=== PATIENT | female | born 1955 | race Caucasian/White ===

== ENCOUNTER 2016-05-18 07:14 | Outpatient (CLI) ==
[2016-05-18 08:15] LABS: ALBUMIN/GLOBULIN RATIO 1.38; ANION GAP 13.3; BILIRUBIN,TOTAL 1.16 mg/dL (0.00-1.20); BUN/CREATININE RATIO 15.29; CALCIUM 9.5 mg/dL (8.2-10.2); CREATININE 0.85 mg/dL (0.60-1.30); POTASSIUM 4.3 mmol/L (3.5-5.10); TOTAL PROTEIN 6.9 g/dL (6.4-8.2)
[2016-05-18 12:04] LABS: CHOL/HDL RATIO 4.2 (4.5-5.5)
== END 2016-05-18 07:15 | disposition home or self-care (01) ==
LOC: LAB 07:14
PROVIDERS: ATTEND Family Medicine
DX: I10 Essential (primary) hypertension (principal); F43.0 Acute stress reaction; F41.9 Anxiety disorder, unspecified; E55.9 Vitamin D deficiency, unspecified; E78.5 Hyperlipidemia, unspecified
CPT/HCPCS: 36415; 80053; 80061; 82306

== ENCOUNTER 2016-06-07 08:15 | Outpatient (CLI) ==
--- NOTE | 2016-06-07 09:22 | US ---
EXAM: Right upper quadrant abdominal ultrasound. History: Elevated liver enzymes. Technique: Multiple sonographic images through the abdomen were obtained. Color duplex Doppler was used to interrogate vascular flow. Findings: The pancreas was not seen due to bowel gas shadowing. No abdominal ascites. No shadowing gallstones. Gallbladder wall is not thickened. Common bile brittny t measures 0.3 cm in caliber. The liver is echogenic compared to the adjacent right renal cortex. The liver echotexture is coarse leonie. There is antegrade flow within the main portal vein. No focal liver lesions identified sonogr aphically. Limited visualization of the right kidney demonstrates no evidence for hydronephrosis. Impression: Fatty liver with coarsened echotexture.
== END 2016-06-07 08:16 | disposition home or self-care (01) ==
LOC: RAD 08:15
PROVIDERS: ATTEND Clinical Nurse Specialist
DX: R94.5 Abnormal results of liver function studies (principal)
CPT/HCPCS: 36415; 80074

== ENCOUNTER 2016-08-25 07:21 | Outpatient (CLI) ==
--- NOTE | 2016-08-25 09:07 | US ---
EXAM: Ultrasound thyroid. HISTORY: Abnormal thyroid stimulating hormone. COMPARISON: None available. TECHNIQUE: Zhang-scale and color Doppler images. FINDINGS: The right lobe of the thyroid measures 5.1 x 2.7 x 1.9 cm. There is diffusely heterogeneous echogeni city with multiple nodules present. Largest nodule is mixed solid and cystic measuring approximatel y 2.7 x 1.8 x 2.3 cm. The thyroid isthmus measures 0.7 cm. The left lobe of the thyroid measures 6.1 x 2.2 x 2.1 cm. There is diffusely heterogeneous echogeni city with multiple nodules present. The largest nodule is mixed solid and cystic measuring approxim ately 2.5 x 1.6 x 2.2 cm. IMPRESSION: Thyromegaly with multiple nodules as described. Consider percutaneous sampling of the largest nodul es.
== END 2016-08-25 07:22 | disposition home or self-care (01) ==
LOC: RAD 07:21
PROVIDERS: ATTEND Family Medicine
DX: R94.6 Abnormal results of thyroid function studies (principal)